=== PATIENT | male | born 2000 | race Caucasian/White ===

== ENCOUNTER 2023-02-09 21:50 | Emergency (ER) | payer OTHER, BC ==
[2023-02-09] MEDS ORDERED: Boostrix 0.5 ML (Tdap) VIAL (>/=7 yrs of age) ONE (23:26)
== END 2023-02-10 00:02 | disposition home or self-care (01) ==
LOC: ERS 21:50
DX: S80.812A Abrasion, left lower leg, initial encounter (principal); V49.9XXA Car occupant (driver) (passenger) injured in unspecified traffic accident, initial encounter
CPT/HCPCS: 90471; 90715